=== PATIENT | female | born 1945 | race Asian ===

== ENCOUNTER 2016-12-19 09:49 | Emergency (ER) | payer MEDICARE, OTHER ==
[~2016-12-19] VITALS: Ht 157.5 cm; Wt 68.0 kg
[2016-12-19 10:00] VITALS: BP 116/60
[2016-12-19] MEDS ORDERED: Morphine Sulfate 4mg/ml Inj IVP ONE (10:00)
[2016-12-19 10:46] LABS: BASOPHILS % (AUTO) 0.9 % (0.0-2.0); EOSINOPHILS % (AUTO) 1.6 % (0.0-3.0); LYMPHOCYTES % (AUTO) 32.2 % (20.0-45.0); MEAN CORPUSCULAR HEMOGLOBIN 31.8 PG (27.0-31.0); MEAN CORPUSCULAR HGB CONC 33.7 G/DL (32.0-36.0); MEAN CORPUSCULAR VOLUME 95 FL (80-99); MEAN PLATELET VOLUME 5.9 FL (6.5-10.1); MONOCYTES % (AUTO) 6.4 % (1.0-10.0); NEUTROPHILS % (AUTO) 58.8 % (45.0-75.0); PLATELET COUNT 318 K/UL (150-450); RED BLOOD COUNT 3.63 M/UL (4.20-5.40); RED CELL DISTRIBUTION WIDTH 11.9 % (11.6-14.8); WHITE BLOOD COUNT 10.4 K/UL (4.8-10.8)
[2016-12-19 11:00] LABS: INR 0.9 (0.9-1.1); PROTHROMBIN TIME 9.3 SEC (9.30-11.50)
[2016-12-19 11:09] LABS: ALANINE AMINOTRANSFERASE 18 U/L (3-33); ASPARTATE AMINO TRANSFERASE 25 U/L (5-40); CALCIUM 9.5 mg/dL (8.6-10.2); CARBON DIOXIDE 23 mEQ/L (20-30); CREATININE 0.8 mg/dL (0.5-0.9); GLOMERULAR FILTRATION RATE > 60 mL/min (>60); HEMOLYSIS 9; LIPASE 58 U/L (< 60); TOTAL PROTEIN 7.9 g/dL (6.6-8.7)
[2016-12-19 11:10] LABS: ANION GAP 17 (5-15); CHLORIDE 98 mEQ/L (98-107); POTASSIUM 3.9 mEQ/L (3.4-4.9); SODIUM 138 mEQ/L (135-145)
[2016-12-19 11:18] VITALS: BP 109/59
[2016-12-19 11:25] LABS: APPEARANCE,URINE CLEAR; KETONES,URINE NEGATIVE (NEGATIVE); LEUKOCYTE ESTERASE ,URINE 1+ (NEGATIVE); NITRITE,URINE NEGATIVE (NEGATIVE); PH,URINE 7 (4.5-8.0); PROTEIN,URINE 2+ (NEGATIVE); UROBILINOGEN,URINE NORMAL MG/DL (0.0-1.0)
[2016-12-19 11:29] LABS: RBC,URINE 0-2 /HPF (0 - 2); SQUAMOUS EPITHELIAL CELL,UR OCCASIONAL /LPF (NONE/OCC); WBC,URINE 0-2 /HPF (0 - 2)
[2016-12-19 13:30] VITALS: BP 108/61
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
[2016-12-19 15:11] VITALS: BP 127/69
--- NOTE | 2016-12-20 11:27 | Diagnostic Imaging Report ---
Clinical history: As in header. Technique: Portable AP chest radiograph was obtained. Comparison: None Findings: Lung volumes are low. Mild scattered reticular densities suggest changes of chronic lung disease. There is borderline cardiomegaly without overt pulmonary edema. No evidence of pneumothorax or pleural effusion. Mild atherosclerotic calcification of the aortic arch noted. Osseous structures appear grossly unremarkable. Impression: Borderline cardiomegaly and mild scattered changes of chronic lung disease.
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
--- NOTE | 2016-12-21 08:04 | Diagnostic Imaging Report ---
Indication: PAIN Technique: 2 views of the left tibia and fibula Comparison: none Findings: No acute fractures. No dislocations. No radiopaque foreign body Impression: Negative
--- NOTE | 2016-12-21 08:04 | Diagnostic Imaging Report ---
Indication: PAIN Technique: 3 views of the right shoulder Comparison: none Findings: There is a minimally displaced fracture of the greater tuberosity. No shaft fracture demonstrated. Bones are osteoporotic. Impression:Positive for greater tuberosity fracture. Findings previously discussed by phone with Dr. Saenz in the emergency room
== END 2016-12-19 15:32 | disposition short-term general hospital (02) ==
LOC: EDBD 09:49 → EMR 10:08
DX: S42.254A Nondisplaced fracture of greater tuberosity of right humerus, initial encounter for closed fracture (principal); S30.1XXA Contusion of abdominal wall, initial encounter; I10 Essential (primary) hypertension; V49.50XA Passenger injured in collision with unspecified motor vehicles in traffic accident, initial encounter; Y92.410 Unspecified street and highway as the place of occurrence of the external cause
CPT/HCPCS: 29240; 36415; 71010; 73030; 73590; 74177; 80053; 81003; 83690; 85025; 85610; 85730; 86850; 86900; 86901; 96361; 96374; 96375; 99285; J2270; J2405; Q9967